=== PATIENT | female | born 1960 | race Caucasian/White ===

== ENCOUNTER → 2017-11-19 08:03 | Outpatient (CLI) | payer BC, SELFPAY ==
--- NOTE | 2017-11-19 08:30 | MM_ITS ---
MM Dig screening mamm BI w/CAD CAD Screening ORDERING PHYSICIAN : Agustin Del Castillo MD PATIENT AGE: 57 years GENDER: Female COMPARISON: Previous mammograms: January 2014, June 2012, October 2010 INDICATION: Routine screening. 57-year-old taking Premarin. No new complaints. Family history. Maternal aunt 70 and cousin 40 with breast cancer TECHNIQUE: Standard CC and MLO images were obtained. R2 CAD reviewed. FINDINGS: Dense Breast tissue again seen towards upper outer quadrant of both breasts. This decreases to mammography in this region . If any palpable areas arise ultrasound is useful compliment to mammography in breast of this increased density. Radiographically I see no discrete new findings RIGHT BREAST:. Areas of density towards upper-outer quadrant appears similar and stable on the MLO view. Scattered benign calcifications. LEFT BREAST:The dense fibroglandular elements towards upper-outer quadrant again noted and appears stable particularly on MLO view., And axillary cc view. No discrete new areas of concern radiographically. Self breast examination be encouraged and emphasized in this patient as well.. & If any persistent palpable area does arise ultrasound would be useful compliment to mammography in breast of this increased density IMPRESSION: Dense breast tissue towards upper-outer quadrant of both breasts does, decreased sensitivity mammography. However We see no significant new findings on today's study when compared to multiple prior studies. . Bilateral follow-up in one year recommended BI-RADS Category: 2 Benign Finding(s) RECOMMENDED FOLLOW-UP: 1YR - 1 YEAR FOLLOW-UP (A letter has been sent to the patient regarding results of the study.) In
== END ==
PROVIDERS: Family Provider Family Medicine; PCP Family Medicine; Visit Provider Family Medicine
DX: Z12.31 Encounter for screening mammogram for malignant neoplasm of breast (principal)
CPT/HCPCS: 77067

== ENCOUNTER → 2018-11-26 08:16 | Outpatient (CLI) | payer BC, SELFPAY ==
--- NOTE | 2018-11-26 08:18 | MM_ITS ---
MM Dig screening mamm BI w/CAD ORDERING PHYSICIAN : Agustin Del Castillo MD PATIENT AGE: 58 years GENDER: Female COMPARISON: November INDICATION: ITS.REASON: SCREENING takes Premarin. No new complaints Family history. Maternal aunt breast cancer age 70 and maternal cousin age 40 TECHNIQUE: Standard CC and MLO images were obtained. R2 CAD reviewed. Additional axillary cc view both breast FINDINGS: Very dense breast pattern is seen in this patient which significantly decreases sensitivity of mammography . If any palpable areas arise ultrasound is a useful compliment to mammography in breast of this dense character. Dense somewhat heterogeneous slight asymmetric pattern again observed RIGHT BREAST:No new findings of significant concern follow-up in one year recommended. . There are some scattered small calcifications at the central breast which appears stable. Other areas of subtle calcification at the lateral retroareolar region I believe similar to previous study. No new suspicious calcifications. Follow-up in one year adequate... Heterogeneous breast pattern and scattered areas of nodularity similar to previous study. LEFT BREAST: No new areas of significant concern. Dense breast pattern similar to previous studies Follow-up in one year recommended IMPRESSION: Dense breast bilaterally decreased sensitivity mammography No significant new areas of concern Bilateral follow-up in one year recommended BI-RADS Category: 2 Benign Finding(s) RECOMMENDED FOLLOW-UP: 1YR 1 YEAR FOLLOW-UP (A letter has been sent to the patient regarding results of the study.)
== END ==
PROVIDERS: PCP Family Medicine; Visit Provider Family Medicine
DX: Z12.31 Encounter for screening mammogram for malignant neoplasm of breast (principal)
CPT/HCPCS: 77067

== ENCOUNTER → 2020-12-28 08:49 | Outpatient (CLI) | payer BC, SELFPAY ==
--- NOTE | 2020-12-28 08:51 | XR_ITS ---
PROCEDURE: XR DEXA AXIAL SKELETON CLINICAL HISTORY: OSTEOPOROSIS COMPARISON: CR BONE3 BONE DENSITOMETRY(HIP:LT SPINE from 10/15/2014 FINDINGS: The right hip BMD is 0.585 with a T-score of -2.4. The left hip BMD is 0.724 with a T-score of -1.8. The lumbar spine BMD is 0.862 with a T-score of -1.7. Previously the lowest density was in the right femoral neck with a T-score -2.3. IMPRESSION: This patient is considered osteopenic according to the World Health Organization criteria. Bone density is between 10 and 25 percent below young normal. Fracture risk is moderate. Treatment is advised. Based on these results a follow-up exam is recommended in 2 year. Dictated by: Austin Bone MD 12/29/2020 05:55 Austin Bone MD in [place] 12/29/2020 05:55
--- NOTE | 2020-12-28 08:51 | MM_ITS ---
PROCEDURE INFORMATION: Exam: MG Screening 3D Mammography Exam date and time: 12/28/2020 8:51 AM Age: 60 years old Clinical indication: Encounter for screening mammogram for malignant neoplasm of breast . Family history of premenopausal and postmenopausal breast carcinoma TECHNIQUE: Imaging protocol: Screening tomosynthesis and 2D mammography including computer-aided detection (CAD) when performed. COMPARISON: 1. MG [facility]BI MM Dig screening mamm BI w/CAD 11/26/2018 8:32 AM 2. MG [facility] MM Dig screening mamm BI w/CAD 11/19/2017 8:39 AM 3. MG DMSB DIG MAMM-SCREEN LEVI 01/19/2014 8:54 AM FINDINGS: MAMMOGRAPHY: Breast composition: The breasts are extremely dense, which lowers the sensitivity of mammography. Mass: No new suspicious masses. Architectural distortion: No suspicious distortion. Calcifications: No suspicious calcifications. Asymmetric density: None. Skin thickening: None. Axillary adenopathy: None. IMPRESSION: No mammographic evidence of malignancy. Annual screening is recommended unless otherwise clinically indicated. ASSESSMENT: BI-RADS Category 1: Negative
== END ==
PROVIDERS: PCP Family Medicine; Visit Provider Nurse Practitioner Family
DX: Z12.31 Encounter for screening mammogram for malignant neoplasm of breast (principal); M81.0 Age-related osteoporosis without current pathological fracture
CPT/HCPCS: 77063; 77067; 77080

== ENCOUNTER → 2021-11-18 12:50 | Outpatient (CLI) | payer BC, SELFPAY ==
[2021-11-18 15:22] LABS: Blood Urea Nitrogen 13 mg/dl (7-17); Estimated Glomerular Filt Rate 101 ml/min (>60); GFR (African American) 122 ML/MIN (>60)
== END ==
PROVIDERS: Visit Provider Family Medicine
DX: H93.19 Tinnitus, unspecified ear (principal)
CPT/HCPCS: 36415; 82565; 84520

== ENCOUNTER → 2021-11-21 12:59 | Outpatient (CLI) | payer BC, SELFPAY ==
--- NOTE | 2021-11-21 13:40 | MR_ITS ---
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 TINNITUS [id number]. FINDINGS: Multi planar MR imaging was obtained through the brain without contrast. The midline structures appear intact. There is no evidence of Chiari malformation. On T2 and flair axial images the brain parenchyma is homogeneous. On diffusion-weighted images there is no evidence of restricted diffusion. The visualized paranasal sinuses demonstrate normal signal voids. The seventh and eighth nerve root complexes are intact. IMPRESSION: Essentially unremarkable nonenhanced brain MRI. Reviewed, Interpreted and Dictated by Tuan Canales MD Transcribed by Syl Pike Authenticated by Tuan Canales MD on 11/21/2021 03:02:16 PM [facility]
== END ==
PROVIDERS: PCP Family Medicine; Visit Provider Family Medicine
DX: H93.13 Tinnitus, bilateral (principal)
CPT/HCPCS: 70551

== ENCOUNTER → 2023-03-07 09:02 | Outpatient (CLI) | payer BC, SELFPAY ==
--- NOTE | 2023-03-07 09:07 | MM_ITS ---
PROCEDURE INFORMATION: Exam: MG Bilateral Screening 3D Mammography Exam date and time: 03/07/2023 9:03 AM Age: 62 years old Clinical indication: Screening mammogram TECHNIQUE: Imaging protocol: Bilateral Screening tomosynthesis and 2D mammography including computer-aided detection (CAD) when performed. COMPARISON: 1. MG MM DIG SCREENING MAMM BI W/CAD 12/28/2020 8:51 AM 2. MG SCBI MM Dig screening mamm BI w/CAD 11/26/2018 8:32 AM 3. MG SCBI MM Dig screening mamm BI w/CAD 11/19/2017 8:39 AM 4. MG DMSB DIG MAMM-SCREEN LEVI 01/19/2014 8:54 AM FINDINGS: MAMMOGRAPHY: Breast composition: The breast is heterogeneously dense, which may obscure small masses. Mass: None. Architectural distortion: No new or suspicious architectural distortion. Calcifications: No new or suspicious calcifications are present Asymmetric density: No new or suspicious asymmetric density is present Skin thickening: None. Axillary adenopathy: None. IMPRESSION: No mammographic evidence of malignancy. Recommend annual screening mammography unless otherwise clinically indicated. ASSESSMENT: BI-RADS category 1: Negative
--- NOTE | 2023-03-07 09:08 | XR_ITS ---
FINAL REPORT CLINICAL HISTORY: .post menopausal COMPARISON: None FINDINGS: Using L1-4, the bone mineral density of the spine is 0.893 g/cm2, corresponding to T-score of -1.4, which is in the low bone density range. Using the left hip, the bone mineral density of the femoral neck is 0.637 g/cm2, corresponding to a T-score of -1.9, which is in the low bone density range. Using the right hip, the bone mineral density of the femoral neck is 0.594 g/cm2, corresponding to a T-score of -2.3, which is in the low bone density range. FRAX was not reported because patient is being treated for osteoporosis. NOTE: T-score: Standard deviation compared with peak bone mass of young adult mean. *Following the recommendations of the International Society of Bone densitometry, classification of hip BMD is based on the lower of two T-scores; total hip or femoral neck. IMPRESSION: Diminished bone mineral density consistent with low bone density. Reviewed, Interpreted and Dictated by Dmitry Staley III, MD Transcribed by Payton De La Cruz Authenticated and [facility]
== END ==
PROVIDERS: PCP Physician Assistant; Visit Provider Physician Assistant
DX: Z12.31 Encounter for screening mammogram for malignant neoplasm of breast (principal); Z78.0 Asymptomatic menopausal state
CPT/HCPCS: 77063; 77067; 77080

== ENCOUNTER 2025-04-14 07:41 | Outpatient (CLI) | payer MEDICARE, SELFPAY ==
--- OUTSIDE RECORDS SUMMARY | 2024-12-22 07:15 | XMS_ITS ---
Author Organization [facility] Address [address] [facility] [address] [place] [id number] Care Team Providers Care Telecom Analyst Name Role Phone Byron Del Castillo Primary Care Provider Allergies Allergen (clinical drug ingredient) Drug/Non Drug Allergy documented on EMR Reaction Allergy Type Onset Date Status Latex Latex Unknown Allergy Active Results Component Value Reference Range Notes P-Comprehensive Metabolic Pa elizabeth (CMP) Reviewed date:01/05/2025 10:01:52 AM Interpretation:Normal Performing Lab: Notes/Report: Test performed by [facility], [facility] [address] [place] [address] , [address], [place] [address] Reggie Simon MD, Business Performance Analyst CLIA: [id number] Sodium 141 135-145 mmol/L Potassium 4.0 3.5-5.3 mmol/L Chloride 106 97-108 mmol/L CO2 27 22-32 mmol/L Glucose 85 65-99 mg/dL BUN 11 8-23 mg/dL Creatinine 0.58 0.50-1.00 mg/dL Calcium 9.6 8.6-10.4 mg/dL eGFR by Creatinine 100 >59 mL/min/1.73m2 Protein 6.6 6.0-8.3 g/dL Albumin 4.3 3.5-5.3 g/dL Alkaline Phosphatase 84 35-121 IU/L ALT (SGPT) 15 <5-47 IU/L AST (SGOT) 23 <5-40 IU/L Bilirubin, Total 0.6 <0.2-1.2 mg/dL A/G Ratio 1.9 1.1-2.5 P-Lipid Panel Reviewed date:01/05/2025 10:01:52 AM Interpretation:chol 220, non-hdl 130 Performing Lab: Notes/Report: Test performed by [facility], [address] , [address], [place] [address] Reggie Simon MD, Business Performance Analyst CLIA: [id number] Cholesterol 220 <200 mg/dL Triglycerides 65 <150 mg/dL HDL Cholesterol 90 >39 mg/dL Cholesterol / HDL Ratio 2.44 0.00-4.44 Ratio Non-HDL Cholesterol 130 <130 mg/dL LDL Cholesterol (Calculation) 117 <130 mg/dL LDL Cholesterol Levels* Less than 100 mg/dL Optimal 100 to 129 mg/dL Near Optimal/ Above Optimal 130 to 159 mg/dL Borderline High 160 to 189 mg/dL High 190 mg/dL and above Very High * Categories as recommended by the 2004 ATPIII guidelines LDL/HDL Ratio 1.3 <3.3 Ratio LDL Cholesterol Patient History Test Date: 02/22/2023 LDL Results: 132 Units: mg/dL % Change: - Test Date: 01/04/2024 LDL Results: 116 Units: mg/dL % Change: -12% Test Date: 12/22/2024 LDL Results: 117 Units: mg/dL % Change: +0% REASON FOR VISIT 6 months, Needs labs, mammogram, & Prevnar vaccine Medications Medication SIG (Take, Route, Fr equency, Duration) Notes Start Date End Date Status Premarin 0.3 MG take 1 tablet by juan daniel th every day Orally Once a day; Duration: 90 days Active Sertraline HCl 50 MG 1 tablet orally onc e a day; Duration: 90 days Active Lisinopril 5 MG 1 tablet Orally Once a day; Duration: 30 days 12/22/2024 Active Oxazepam 10 MG 1 cap(s) orally 3 ti mes a day as needed; Duration: 30 day(s) 06/30/2024 A ctive Problems Problem Type SNOMED Code ICD Code Onset Dates Problem Status W/U Status Risk Notes Problem Essential hypertension (I10) Active confirmed Vital Signs Blood pressure systolic 150 mm Hg 12/23/19 25 Blood pressure diastolic 90 mm Hg 025 Heart Rate 56 /min 12/22/2024 Height 64.75 in 12/22/2024 Weight 119.0 lbs 12/22/2024 BMI 19.95 kg/m2 12/22/2024 Encounters Encounter Location Date Provider Diagnosis [facility] [address] [facility] [address] [place] [id number] 12/22/2024 Byron Del Castillo Essential hypertensi on I10 ; Anxiety and depression F41.9 ; Hormone replacement therapy Z79.890 ; Pure hypercholesterolemia, unspecified E78.00 ; Hyperlipidemia, unspecified hyperlipidemia type E78.5 and Body mass index (BMI) of 19.0 to 19.9 in adult Z68.1 Assessments Encounter Date Diagnosis (ICD Code) Assessment Notes Treatment Notes Treatment Clinical Notes Section Notes 12/22/2024 Essential hypertension (ICD-10 - I10) 12/22/2024 Anxiety and depression (ICD-10 - F41.9) 12/22/2024 Hormone replacement therapy (ICD-10 - Z79.890) 12/22/2024 Pure hypercholesterolemi a, unspecified (ICD-10 - E78.00) 12/22/2024 Hyperlipidemia, unspecified hyperlipidemia type (ICD-10 - E78.5) 12/22/2024 Body mass index (BMI) of 19.0 to 19.9 in adult (ICD-10 - Z68.1) Plan Of Treatment Medication Medication Name Sig Start Date Stop Date Notes Lisinopril 5 MG 1 tablet Orally Once a day; Duration: 30 days 12/22/2024 Next Appt Details Follow Up: 4 Weeks, Reason: Provider Name:Rodolfo Schumacher ry, 07/17/2025 09:45:00 AM, [address] [facility] [address] [facility], [address] [place] [address], [id number], Progress Notes * Teresa HOUSEDOB: [birth year] (64 yo F)Acc No.[id number]:12/22/2024 Progress Notes Patient: Teresa GROVER Provider: Byron Del Castillo M.D. :1960 A ge:64 Y S ex:Female Date:12/22/2024 Address:[address] [place] [address] , [place], [id number] Subjective: * Chief Complaints: * 1 . 6 months. 2. Needs labs, mammogram, & Prevnar vaccine. * HPI: C ardiology: The pt is here for a check up on Hyperlipidemia. Pt states she is doing good and denies any new concerns today. Pt states she is fasting. Denies : Chest Pain. D enies : Short of Breath. D enies : Dizziness. D enies : Palpitations. P sychology: The pt is here for a check up on anxiety. Pt states she is needing refills sent to [facility] in [facility]. E NT/respiratory: Currently refusing Prevnar. We discussed. * ROS: D ERMATOLOGY: no R cyndee. n o H martha. G ASTROENTEROLOGY: no N ausea. n o V omiting. n o D iarrhea.? U ROLOGY: no D ifficulty urinating. n o B lood in urine. * Medical History: T Dap 2017, Negative Cologuard 12/2020. * Surgical History: H ysterectomy 1985, Tonsillectomy , Root Canal 01/2013, Dental 03/2013, Cosmetic 07/2014. * Hospitalization/Major Diagno stic Procedure: S ee Above . * Family History: F ather: 85 yrs, skin cancers of face, diagnosed with Heart Disease. M other: alive 75 yrs. 1 brother(s) . . * Social History: C URRENT TOBACCO USE S moking Status: Patient does NOT smoke. C affeine: yes, frequency:coffee and diet pepsi. Home smoke detector use: yes. Marital Status: . Past smoking status: no. Alcohol: Yes, Type: , Frequency: ,Years: , Determination:occasionally. Sexually active: yes. * Medications: T aking Oxazepam 10 MG Capsule 1 cap(s) orally 3 times a day as needed , Taking Sertraline HCl 50 MG Tablet 1 tablet orally once a day , Taking Premarin 0.3 MG Tablet take 1 tablet by mouth every day Orally Once a day , Medication List reviewed and reconciled with the patient * Allergies: L atex. Objective: * Vitals: W t:119.0, Temp:97.6, BP:150/90, HR:56, Nurse:IMAN, Ht: 64.75, BMI:19.95. * Examination: G eneral Examination: General Appearance: N AD. H EENT: u nremarkable.?Oral cavity: n o lesions, mucosa moist and WNL, no erythema. N kathy: s upple, no lymphadenopathy. C hest: n ormal shape and expansion. H eart: R SR, REPEAT SI=276/80. Lungs: c lear to auscultation. A bdomen: bowel sounds present, soft and nontender.?Neurologic Exam: I ntact, gait normal. S kin: n ormal, no rash. P eripheral pulses: n ormal . E xtremities: n o leg edema. Assessment: * Assessment: 1. E ssential hypertension - I10 (Primary) 2 . A nxiety and depression - F41.9 3 . H ormone replacement therapy - Z79.890 4 . P ure hypercholesterolemia, unspecified - E78.00 5 . H yperlipidemia, unspecified hyperlipidemia type - E78.5 6 . B rozina mass index (BMI) of 19.0 to 19.9 in adult - Z68.1? Plan: * Treatment: Value Reference Range A /G Ratio 1.9 1.1-2.5 - * A lbumin 4.3 3.5-5.3 - g/dL * A lkaline Phosphatase 84 35-121 - IU/L * A LT (SGPT) 15 <5-47 - IU/L * A ST (SGOT) 23 <5-40 - IU/L * B ilirubin, Total 0.6 <0.2-1.2 - mg/dL * B UN 11 8-23 - mg/dL * C alcium 9.6 8.6-10.4 - mg/dL * C hloride 106 97-108 - mmol/L * C O2 27 22-32 - mmol/L * C reatinine 0.58 0.50-1.00 - mg/dL * G lucose 85 65-99 - mg/dL * P otassium 4.0 3.5-5.3 - mmol/L * S odium 141 135-145 - mmol/L * P rotein 6.6 6.0-8.3 - g/dL * e GFR by Creatinine 100 >59 - mL/min/1.73m2 * Denisa Glez 01/05/2025 10:0 1:33 AM > see phone encounter 2.?Pure hypercholesterolemia, unspecified?LAB: P-Lipid Panel (Collection Date & Time - 12/22/2024 11:17 AM)?chol 220, non-hdl 130* Value Reference Range C holesterol / HDL Ratio 2.44 0.00-4.44 - Ratio * C holesterol 220 H <200 - mg/dL * H DL Cholesterol 90 >39 - mg/dL * L DL Cholesterol (Calculation) 117 <130 - mg/d L * L DL/HDL Ratio 1.3 <3.3 - Ratio * N on-HDL Cholesterol 130 H <130 - mg/dL * T riglycerides 65 <150 - mg/dL * Denisa Glez 01/05/2025 10:0 1:33 AM > see phone encounter * Procedure Codes: G 2211 Complex e/m visit add on, 3077F SYST BP = 140 MM HG6 IT, 3079F DIAST BP 80- 89 MM HG * Follow Up: 4 Weeks * Images: Billing Information: * Visit Code: 88478 Office Visit, Est Pt., Level 4. * Procedure Codes: G2211 Complex e/m visit add on. 3077F SYST BP = 140 MM HG6 IT. 3079F DIAST BP 80-89 MM HG. * Electronic signature of Byron Del Castillo MD on 04/14/2025 at 07:45 AM EDT Sign off status: Pending * Provider: Byron Del Castillo M.D. Date: 0 12/22/2024 Generated for Printi ng/Faxing/eTransmitting on: 0 04/14/2025 07:45 AM EDT History and Physical Notes * HPI (History of Present Illness) Category Sub-Category Detail Notes Category Not es ENT/respiratory Currently re fusing Prevnar. We discussed. Cardiology Short of Breath Chest Pain Palpitations Dizziness Examination Category Sub-Category Detail Notes Category Not es General Examination HEENT: unremarkable Heart: RSR, REPEAT ZS=470/8 0 Lungs: clear to auscultatio n Abdomen: bowel sounds present , soft and nontender Extremities: no leg edema General Appearance: NAD Skin: normal, no rash Neurologic Exam: Intact, gait normal Neck: supple, no lymphaden opathy Oral cavity: no lesions, mucosa m oist and WNL, no erythema Peripheral pulses: normal Chest: normal shape and exp ansion
--- OUTSIDE RECORDS SUMMARY | 2025-01-14 11:00 | XMS_ITS ---
Author [facility] Address [address] [facility] [address] [place] [id number] Care Team Providers Care Boilers And Pressure Vessels Inspector Name Role Phone Byron Del Castillo Primary Care Provider [phone] Rodolfo Stanley Unavailable [phone] Allergies Allergen (clinical drug ingredient) Drug/Non Drug Allergy documented on EMR Reaction Allergy Type Onset Date Status Latex Latex Unknown Allergy Active REASON FOR VISIT Bp elevated, unable to take lisinopril, chol elevated Medications Medication SIG (Take, Route, Frequency, Duration) Notes Start Date End Date Status Premarin 0.3 MG take 1 tablet by juan daniel th every day Orally Once a day; Duration: 90 days Active Lisinopril 5 MG 1 tablet Orally Once a day; Duration: 30 days 12/22/2024 Not-Takin g Sertraline HCl 50 MG 1 tablet orally onc e a day; Duration: 90 days Active Oxazepam 10 MG 1 cap(s) orally once a day as needed 06/30/2024 Active hydrOXYzine HCl 25 MG 1 or 2 tablets as needed Orally Once a day at bedtime 01/14/2025 Active Problems Problem Type SNOMED Code ICD Code Onset Dates Problem Status W/U Status Risk Notes Problem High density lipoprotein above reference range (finding) (574587653) Elevated HDL (E78.89) Active confirmed Problem Primary insomnia (9237489) Primary insomnia (F51.01) Active confirmed Vital Signs Blood pressure systolic 122 mm Hg 01/15/20 25 Blood pressure diastolic 80 mm Hg 05/14/2 025 Heart Rate 66 /min 01/14/2025 Height 64.75 in 01/14/2025 Weight 117.8 lbs 01/14/2025 BMI 19.75 kg/m2 01/14/2025 Encounters Encounter Location Date Provider Diagnosis [facility] [address] [place] [address] [address] [place], [place] [id number] 01/14/2025 Rodolfo Lizeth Elevated HDL E78.89 ; Primary insomnia F51.01 and Body mass index (BMI) of 19.0 to 19.9 in adult Z68.1 Assessments Encounter Date Diagnosis (ICD Code) Assessment Notes Treatment Notes Treatment Clinical Notes Section Notes 01/14/2025 Elevated HDL (ICD-10 - E78.89) No change in treatment 01/14/2025 Primary insomnia (ICD-10 - F51.01) 01/14/2025 Body mass index (BMI) of 19.0 to 19.9 in adult (ICD-10 - Z68.1) Plan Of Treatment Medication Medication Name Sig Start Date Stop Date Notes Oxazepam 10 MG 1 cap(s) orally once a day as needed 2023 hydrOXYzine HCl 25 MG 1 or 2 tablets as needed Orally Once a day at bedtime 01/14/2025 Treatment Notes Assessment Notes Elevated HDL No change in treatme nt Next Appt Details Follow Up: 6 Months, Reason: Provider Name:Rodolfo Schumacher ry, 07/17/2025 09:45:00 AM, [address] [facility] [address] [facility], [address], [place], [place], [id number], Progress Notes * Herlinda ESPINOZAilianaDOB: [birth year] (64 yo F)Acc No.[id number]:01/14/2025 Progress Notes Patient: Teresa GROVER Provider: Sofi Stanley M.D. :1960 A ge:64 Y S ex:Female Date:01/14/2025 Address:[address] [place] [address] [place], [id number] Pcp:Byron Del Castillo Subjective: * Chief Complaints: * 1 . Bp elevated, unable to take lisinopril, chol elevated. * HPI: C ardiology: 64 year old female presents with c/o BloodPressure at Home T he patient is here today for a follow up on Hypertension. Pt states she had blurred vision with the Lisinopril so she stopped it. Pt states she does not check her BP at home. Denies : Chest Pain. D enies : Short of Breath. D enies : Dizziness. D enies : Palpitations. * ROS: D ERMATOLOGY: no R cyndee. n o H martha. G ASTROENTEROLOGY: no N ausea. n o V omiting. n o D iarrhea.? U ROLOGY: no D ifficulty urinating. n o B lood in urine. * Medical History: T Dap 2017, Negative Cologuard 12/2020, hyperlipidemia, elevated HDL, Insomnia. * Surgical History: H ysterectomy 1985, Tonsillectomy [...] every day Orally Once a day , Not-Taking Lisinopril 5 MG Tablet 1 tablet Orally Once a day , Medication List reviewed and reconciled with the patient * Allergies: L atex. Objective: * Vitals: W t: 117.8, Temp: 97.7, BP: 122/80, HR: 66, Nurse: IMAN, Ht: 64.75, BMI:19.75. * Examination: P sychology: General Appearance: N AD. G rooming : a dequate.?Eye contact : n ormal. M ood : p leasant. H eart: R SR. L ungs: c lear to auscultation. Assessment: * Assessment: 1. E levated HDL - E78.89 (Primary) 2 . P rimary insomnia - F51.01 ? 3 . B rozina mass index (BMI) of 19.0 to 19.9 in adult - Z68.1 Plan: * Treatment: 2. P rimary insomnia Start hydrOXYzine HCl Tablet, 25 MG, 1 or 2 tablets as needed, Orally, Once a day at bedtime, 45, Refills 1; D ecrease Oxazepam Capsule, 10 MG, 1 cap(s), orally, once a day as needed. * Procedure Codes: G 2211 Complex e/m visit add on, 3074F SYST BP LT 130 MM HG, 3079F DIAST BP 80-89 MM HG * Follow Up: 6 Months * Images: Billing Information: * Visit Code: 39433 Office Visit, Est Pt., Level 3. * Procedure Codes: G2211 Complex e/m visit add on. 3074F SYST BP LT 130 MM HG. 3079F DIAST BP 80-89 MM HG. * Electronic signature of Catherine Stanley MD on 04/14/2025 at 07:44 AM EDT Sign off status: Pending * Provider: Sofi Stanley M.D. Date: 0 01/14/2025 Generated for Javi abarca/Anaya/Kititting on: 0 04/14/2025 07:44 AM EDT History and Physical Notes * HPI (History of Present Illness) Category Sub-Category Detail Notes Category Not es Cardiology Short of Breath Chest Pain Palpitations Dizziness BloodPressure at Home The patient is her e today for a follow up on Hypertension. Pt states she had blurred vision with the Lisinopril so she stopped it. Pt states she does not check her BP at home Examination Category Sub-Category Detail Notes Category Not es Psychology Heart: RSR Lungs: clear to auscultatio n General Appearance: NAD Grooming : adequate Eye contact : normal Mood : pleasant
--- OUTSIDE RECORDS SUMMARY | 2025-02-13 05:30 | XMS_ITS ---
Author Organization [facility] Address [address] [facility] [address] [facility] [address] [place], [place] [id number] Care Team Providers Care Instrument Sterilizer Name Role Phone Byron Del Castillo Primary Care Provider [phone] REASON FOR VISIT 4 week f/u Encounters Encounter Location Date Provider Diagnosis [facility] [address] [facility] [address] [facility] [address] [place] [id number] 02/13/2025 Byron Del Castillo Plan Of Treatment Next Appt Details Provider Name:Rodolfo T Winsome ry, 07/17/2025 09:45:00 AM, [address] [facility] [address] [facility], [address], [place], [id number], Progress Notes * Teresa ESPINOZADOB: [birth year] (64 yo F)Acc No.[id number]:02/13/2025 Progress Notes Patient: Teresa GROVER Provider: Byron Del Castillo M.D. :1960 A ge:64 Y S ex:Female Date:02/13/2025 Address:[address] [place] [address] L[place]EL GATES [place] [id number] Subjective: * Chief Complaints: * 1 . 4 week f/u. * Medical History: Objective: * Vitals: Assessment: Plan: * Treatment: * Images: Billing Information: * Visit Code: * Procedure Codes: * Electronic signature of Byron Del Castillo MD on 04/14/2025 at 07:44 AM EDT Sign off status: Pending * Provider: Byron Del Castillo M.D. Date: 0 02/13/2025 Generated for Javi abarca/Anaya/Chidi on: 0 04/14/2025 07:44 AM EDT
--- OUTSIDE RECORDS SUMMARY | 2025-04-14 07:45 | XMS_ITS | Clinical Summary ---
Author Organization [employer] ([place], [place], [place]) Address [address] [place] [address] Care Team Providers Care Vamp Stitcher Name Role Phone Unavailable Primary Care Provider Unavailabl e Social History Tobacco Use Types Packs/Day Years Used Date Smoking Tobacco: Never Assessed Comments Unknown Sex and Gender Information Value Date Recorded Sex Assigned at Not on file Legal Sex Female 2:34 PM CDT Gender Identity Not on file Sexual Orientation Not on file Plan of Treatment Upcoming Encounters Date Type Department Care Team (Late st Contact Info) Description 04/17/2025 9:00 AM EDT Office Visit [facility] - [address] [place] [address] Nathanael Miller PA-C [address] [place] [address] Health Maintenance Due Date Last Done Comments CT Colonography 1960 Colonoscopy 1960 Colorectal Cancer Screening 1960 DXA SCAN 1960 FOBT/FIT 1958 Fit-DNA (Cologuard) 1960 Sigmoidoscopy 1960 Depression Screening (12+) 1970 Tobacco Cessation Counseling and Screening (12+) 1970 Hepatitis C Screening 1976 DTAP/TDAP/TD VACCINES (1 - Tdap) 1977 Breast Cancer Screening 1998 Pneumococcal 50+ years (1 of 1 - PCV) 2008 Shingles Vaccine (Zoster) (2 of 2) 12/29/20192019 COVID-19 VACCINE ( season) 2024 06/01/2021, 11/26/2020, 10/29/2020 Falls Risk Screening 09/03/2024 Medicare Initial AWV [id number] 11/02/2024 Influenza Vaccine (#1) 2025 Respiratory Syncytial Virus (RSV) Adult or (1 - 1-dose 75+ series) 2033 Insurance MEDICARE PART A B /BLUE SHIELD
--- OUTSIDE RECORDS SUMMARY | 2025-04-14 07:45 | XMS_ITS | Clinical Summary ---
Author Organization [facility] Address [address] [place] [address] Care Team Providers Care Enrollment Specialist Name Role Phone Provider, No Known Primary Care Provider Unavail able Allergies No known active allergies Medications PREMARIN 0.3 MG tablet Take 0.3 mg by mouth Daily. 5 06/20/2019 Active oxazepam (SERAX) 10 MG capsule TAKE ONE CAPSULE BY MOUTH 3 TIMES A DAY NEEDED 1 06/04/2019 Active Immunizations Immunization Administration Dates Next Due Tdap 03/02/2017 Family History Medical History Relation Name Comments Heart disease Father Relation Name Status Comments Father Social History Tobacco Use Types Packs/Day Years Used Date Smoking Tobacco: Never Assessed Abuse Screen Answer Date Recorded Unsafe at Home or Work/School Not on file Feels Threatened by Someone? Not on file 07/2023 Does Anyone Keep You from Co ntacting Others or Doint Things Outside the Home? Not on file 06/13/2023 Physical Sign of Abuse Present Not on file 1 Housing Stability Answer Date Recorded Current Living Arrangements Not on file 06/03 Potentially Unsafe Housing Conditions Not on louie e 06/13/2023 Family and Community Support Answer Flavio e Recorded Help with Day-to-Day Activities Not on file 06/13/2023 Lonely or Isolated Not on file 06/13/2023 Employment Answer Date Recorded Do you want help finding or keeping work or a priscilla b? Not on file 06/13/2023 Disabilities Answer Date Recorded Concentrating, Remembering, or Making Decisions Difficulty Not on file 06/13/2023 Doing Errands Independently Difficulty Not on fi le 06/13/2023 Education Answer Date Recorded Help with school or training? Not on file Preferred Language Not on file 06/13/2023 Comments No Sex and Gender Information Value Date Recorded Sex Assigned at Not on file Legal Sex Female 11:41 AM EDT Gender Identity Not on file Sexual Orientation Not on file Last Filed Vital Signs Vital Sign Reading Time Taken Comments Blood Pressure 124/74 07/04/2019 8:27 AM EDT Pulse 85 07/04/2019 8:27 AM EDT Temperature 37.2 C (98.9 F) 07/04/2019 8:27 AM EDT Respiratory Rate 15 07/04/2019 8:27 AM EDT Oxygen Saturation 98% 07/04/2019 8:27 AM EDT Inhaled Oxygen Concentration - - Weight 52.3 kg (115 lb 3.2 oz) 07/04/2019 8:27 A M EDT Height 165.1 cm (5' 5 ) 07/04/2019 8:27 AM EDT Body Mass Index 19.17 07/04/2019 8:27 AM EDT Plan of Treatment Health Maintenance Due Date Last Done Comments DXA SCAN 1960 MAMMOGRAM 1998 COLOGUARD 11/17/2003 COLON CANCER SCREENING 5 YEAR SIGMOIDOSCOPY 11/17/2003 COLONOSCOPY 11/17/2003 COLORECTAL CANCER SCREENING 11/17/2003 CT COLONOGRAPHY 11/17/2003 FECAL OCCULT BLOOD TEST 11/17/2003 FIT Testing (1 year) 11/17/2003 Pneumococcal Vaccine 50+ (1 of 1 - PCV) 2008 ZOSTER VACCINE (1 of 2) 2008 ANNUAL PHYSICAL 03/02/2017 HEPATITIS C SCREENING 03/02/2017 COVID-19 Vaccine (1 - season) 2024 INFLUENZA VACCINE 06/03/2025 TDAP/TD VACCINES (2 - Td or Tdap) 03/02/2027 017 Insurance [facility] PPO Care Teams Enrollment Specialist Relationship Specialty Start Date End Date Provider, [place] [address] PCP - General 03/02/17
--- OUTSIDE RECORDS SUMMARY | 2025-04-14 07:45 | XMS_ITS ---
Author Organization Unknown Medications Date Medication Dosage DosageUnit StartDate StopDate StopReason Active DoseQuantity DoseUnit Dispense DispenseUnit Refills NdcCode DrugCode PharmacyId IsPrescription MappedMedication Srcstatus Custom 01/14 00:00 :00 hydrOXYzine HCl 25 MG Tablet 01/14/2025 00:00:00 1 45 1 [id number] 6 101 P Start 01/14 00:00 :00 Lisinopril 5 MG Tablet 12/22/2024 00:00:00 0 30 3 [id number] 0 601 P Not Taking 12/22 00:00 :00 Lisinopril 5 MG Tablet 12/22/2024 00:00:00 1 30 3 [id number] 0 601 P Start 03/09 00:00 :00 Oxazepam 10 MG Capsule 03/09/2025 00:00:00 1 90 0 [id number] 6 710 P Unknown Status 01/14 00:00 :00 Oxazepam 10 MG Capsule 06/30/2024 00:00:00 1 [id number] 6 710 P Decrease 01/14 00:00 :00 Oxazepam 10 MG Capsule 06/30/2024 00:00:00 1 90 2 [id number] 6 710 P Taking 12/22 00:00 :00 Oxazepam 10 MG Capsule 06/30/2024 00:00:00 1 90 2 [id number] 6 710 P Taking 06/26 00:00 :00 Oxazepam 10 MG Capsule 06/30/2024 00:00:00 1 90 2 [id number] 6 710 P Unknown Status 06/13 00:00 :00 Oxazepam 10 MG Capsule 01/04/2024 00:00:00 1 90 2 [id number] 6 710 P Taking 01/14 00:00 :00 Premarin 0.3 MG Tablet 1 90 1 [id number] 0 081 P Taking 12/22 00:00 :00 Premarin 0.3 MG Tablet 1 90 1 [id number] 0 081 P Unknown Status 12/22 00:00 :00 Premarin 0.3 MG Tablet 1 90 1 [id number] 0 081 Taking 10/01 00:00 :00 Premarin 0.3 MG Tablet 1 90 1 [id number] 0 081 Start 10/01 00:00 :00 Premarin 0.3 MG Tablet 0 90 1 [id number] 0 081 Stop 06/13 00:00 :00 Premarin 0.3 MG Tablet 1 90 1 [id number] 0 081 P Taking 03/13 00:00 :00 Sertraline HCl 50 MG Tablet 1 90 Tablet 1 690 45079 412 P Unknown Status 01/14 00:00 :00 Sertraline HCl 50 MG Tablet 1 90 Tablet 1 690 79761 412 Taking 12/22 00:00 :00 Sertraline HCl 50 MG Tablet 1 90 Tablet 1 690 76894 412 Taking 08/06 00:00 :00 Sertraline HCl 50 MG Tablet 1 90 Tablet 1 690 05626 412 Start 08/06 00:00 :00 Sertraline HCl 50 MG Tablet 0 90 Tablet 1 690 10624 412 Stop 06/13 00:00 :00 Sertraline HCl 50 MG Tablet 1 90 Tablet 1 690 73961 412 P Taking
--- OUTSIDE RECORDS SUMMARY | 2025-04-14 07:45 | XMS_ITS | Referral Summary ---
Author Organization [employer] ([facility] ([place], [place], [place], [place]) Address [address] [place] [address] Care Team Providers Care Networking Technology Instructor Name Role Phone Unavailable Primary Care Provider [...] Description 04/17/2025 9:00 AM EDT Office Visit [facility] - [address] [place] [address] Nathanael Miller PA-C [address] [place] [address] Insurance MEDICARE PART A B BLUE CROSS/BLUE SHIELD
--- OUTSIDE RECORDS SUMMARY | 2025-04-14 07:45 | XMS_ITS | Patient Health Record ---
Author Organization [facility] Address [address] [place] [id number] Care Team Providers Care Print Line Feeder Name Role Phone Byron Del Castillo Primary Care Provider Rodolfo Stanley Unavailable [phone] Allergies Allergen (clinical drug ingredient) Drug/Non Drug Allergy documented on EMR Reaction Allergy Type Onset Date Status Latex Latex Unknown Allergy Active Results Component Value Reference Range Notes P-Comprehensive Metabolic Pa elizabeth (CMP) Reviewed date:01/05/2025 10:01:52 AM Interpretation:Normal Performing Lab: Notes/Report: Test performed by [facility] [address] [place] [address] , [address], [place] [address] Reggie Simon MD, Cnc Milling Machinist CLIA: [id number] Sodium 141 135-145 mmol/L Potassium 4.0 3.5-5.3 [...] 130 Performing Lab: Notes/Report: Test performed by [facility] [address], [place] [address] Reggie Simon MD, Cnc Milling Machinist CLIA: [id number] Cholesterol 220 <200 mg/dL Triglycerides 65 <150 [...] Results: 117 Units: mg/dL % Change: +0% Cologuard Reviewed date:08/20/2024 03:38:24 PM Interpretation:Negative Performing Lab: Notes/Report: Negative Cologuard Negative P-Comprehensive Metabolic Pa elizabeth (CMP) Reviewed date:06/16/2024 11:21:49 AM Interpretation:Normal Performing Lab: Notes/Report: Test performed by [facility] [address] [place] [address] , [address], [place] [address] Reggie Simon MD, Cnc Milling Machinist CLIA: [id number] Sodium 140 135-145 mmol/L Potassium 4.3 3.5-5.3 mmol/L Chloride 100 97-108 mmol/L CO2 29 22-32 mmol/L Glucose 94 65-99 mg/dL BUN 9 8-23 mg/dL Creatinine 0.62 0.50-1.00 mg/dL Calcium 9.6 8.6-10.4 mg/dL eGFR by Creatinine 98 >59 mL/min/1.73m2 Protein 6.7 6.0-8.3 g/dL Albumin 4.3 3.5-5.3 g/dL Alkaline Phosphatase 80 35-121 IU/L ALT (SGPT) 12 <5-47 IU/L AST (SGOT) 22 <5-40 IU/L Bilirubin, Total 0.6 <0.2-1.2 mg/dL A/G Ratio 1.8 1.1-2.5 P-TSH Reviewed date:06/16/2024 11:21:49 AM Interpretation:Normal Performing Lab: Notes/Report: Test performed by [facility] [facility] , [address], [place] [address] Reggie Simon MD, Cnc Milling Machinist CLIA: [id number] TSH 1.92 0.43-5.25 mU/L Medications Medication SIG (Take, Route, Frequency, Duration) Notes Start Date End Date Status Sertraline HCl 50 MG 1 tablet Orally Onc e a day; Duration: 90 days Active Premarin 0.3 MG take 1 tablet by juan daniel every day Orally Once a day; Duration: 90 days Active Lisinopril 5 MG 1 tablet Orally Once a day; Duration: 30 days 12/22/2024 Not-Takin g Oxazepam 10 MG 1 capsule as needed Orally daily 03/09/2025 Active hydrOXYzine HCl 25 MG 1 or 2 tablets as needed Orally Once a day at bedtime 01/14/2025 Active Immunizations Vaccine Route Administration Date Status Comme nts xFluzone Intradermal (18-64yrs)-trivalent ID Intradermal 05/29/2012 Administered xFlu shot-36 months and older IM Intramuscular 05/27/2009 Administered Shingrix Unknown 05/05/2019 Administered Shingrix Unknown 11/03/2019 Administered H1N1 flu vaccine IM Intramuscular 07/27/2009 Administered Fluzone Quad (6months&older) IM Intramuscular 06/29/2015 Administered Fluzone PF Quad (6-35 months) Unknown 05/10/2019 Administered Fluzone PF Quad (6-35 months) Unknown 04/06/2020 Administered Fluzone PF Quad (6-35 months) Unknown 07/18/2021 Administered COVID 19 Pfizer Unknown 11/20/2020 Administered COVID 19 Pfizer Unknown 11/26/2020 Administered COVID 19 Pfizer Unknown 06/01/2021 Administered Problems Problem Type SNOMED Code ICD Code Onset Dates Problem Status W/U Status Risk Notes Problem Fibrocystic disease of breast (31940421) Fibrocystic disease of breast (610.1) Active confirmed Problem Essential hypertensi on (80300192) Essential hypertension (I10) Active confirmed Problem Osteopenia (152393213) Osteopeni a (M85.80) Active confirmed Problem Mixed anxiety and depressive disorder (846050457) Anxiety and depression (F41.9) Active confirmed Problem Primary insomnia (8241563) Primary insomnia (F51.01) Active confirmed Problem Age-related osteoporosis (331900754) Age-related osteoporosis without current pathological fracture (M81.0) Active confirmed Problem Hormone replacement therapy (036336644) Hormone replacement therapy (Z79.890) Active confirmed Problem Mixed anxiety and depressive disorder (701288469) Anxiety associated with depression (F41.8) Active confirmed Problem Osteoporosis (56749356) Osteoporosis (M81.0) Active confirmed Problem Hyperlipidaemia (03676485) Hyperlipidemia, unspecified hyperlipidemia type (E78.5) Active confirmed Problem Tinnitus of right ea r (6519047345960) Tinnitus of right ear (H93.11) Active confirmed Problem Pure hypercholesterolemia (498778598) Pure hypercholesterol emia, unspecified (E78.00) Active confirmed Problem Benign neoplasm of skin of lower limb (52422194) Lentiginous junctional nevus of right thigh (D22.71) Active confirmed Problem Tinnitus (59259704) Asymmetric subjective nonpulsatile tinnitus without hearing loss, otoscopic finding, neurologic deficit, or head trauma (H93.19) Active confirmed Problem High density lipoprotein above reference range (finding) (314146663) Elevated HDL (E78.89) Active confirmed Vital Signs Heart Rate 66 /min 01/14/2025 Blood pressure diastolic 80 mm Hg 01/14/2025 Height 64.75 in 01/14/2025 Blood pressure systolic 122 mm Hg 01/14/2025 Weight 117.8 lbs 01/14/2025 BMI 19.75 kg/m2 01/14/2025 Encounters Encounter Location Date Provider [facility] [address] [id number] 06/13/2024 Byron Del Castillo Anxiety and depressi on F41.9 ; Hormone replacement therapy Z79.890 ; Osteoporosis M81.0 ; Hyperlipidemia, unspecified hyperlipidemia type E78.5 and Screen for colon cancer Z12.11 [facility] [address] [id number] 12/22/2024 Byron Del Castillo Essential hypertensi on I10 ; Anxiety and depression F41.9 ; Hormone replacement therapy Z79.890 ; Pure hypercholesterolemia, unspecified E78.00 ; Hyperlipidemia, unspecified hyperlipidemia type E78.5 and Body mass index (BMI) of 19.0 to 19.9 in adult Z68.1 [facility] [address] [place], [place] [id number] 01/14/2025 Rodolfo [place] Elevated HDL E78.89 ; Primary insomnia F51.01 and Body mass index (BMI) of 19.0 to 19.9 in adult Z68.1 [facility] [address] [place], [place] [id number] 06/26/2024 Byron Del Castillo Anxiety and depressi on F41.9 [facility] [address] [place] [id number] 12/22/2024 Byron Del Castillo [facility] [address] [place], [place] [id number] 01/05/2025 Byron Del Castillo [facility] [address] [place], [place] [id number] 01/21/2025 Rodolfo [place] [facility] [address] [place], [place] [id number] 03/09/2025 Rodolfo [place] Primary insomnia F51 .01 [facility] [address] [place], [place] [id number] 03/13/2025 Byron Del Castillo Assessments Encounter Date Diagnosis (ICD Code) Assessment Notes Treatment Notes Treatment Clinical Notes Section Notes 06/26/2024 Anxiety and depression (ICD-10 - F41.9) 12/22/2024 Essential hypertension (ICD-10 - I10) 12/22/2024 Anxiety and depression (ICD-10 - F41.9) 01/14/2025 Primary insomnia (ICD-10 - F51.01) 06/13/2024 Anxiety and depression (ICD-10 - F41.9) 06/13/2024 Hormone replacement therapy (ICD-10 - Z79.890) 01/14/2025 Elevated HDL (ICD-10 - E78.89) No change in treatment 03/09/2025 Primary insomnia (ICD-10 - F51.01) 06/13/2024 Osteoporosis (ICD-10 - M81.0) 01/14/2025 Body mass index (BMI) of 19.0 to 19.9 in adult (ICD-10 - Z68.1) 12/22/2024 Hormone replacement therapy (ICD-10 - Z79.890) 12/22/2024 Pure hypercholesterolem ia, unspecified (ICD-10 - E78.00) 06/13/2024 Hyperlipidemia, unspecified hyperlipidemia type (ICD-10 - E78.5) recommended OTC Fish oil in lieu of treatment which she refuses. 06/13/2024 Screen for colon cancer (ICD-10 - Z12.11) 12/22/2024 Hyperlipidemia, unspecified hyperlipidemia type (ICD-10 - E78.5) 12/22/2024 Body mass index (BMI) of 19.0 to 19.9 in adult (ICD-10 - Z68.1) Plan Of Treatment Pending Test Test Name Order Date Mammogram 03/26/2025 Next Appt Details Provider Name:Rodolfo Schumacher ry, 07/17/2025 09:45:00 AM, [address] [facility], [address], [place], [place], [id number], Insurance Providers Payer Name Payer Address Payer Phone Subscriber Number Group Number Insured Name Patient Relationship to Insured Coverage Start Date Coverage End Date MEDICARE PART B [address] [address] Eliudrajwinderанна [place] vanessa [id number] [phone] [id number] Teresa Espinoza Self - patient is the insured [employer] [address] [place] [address] [phone] [id number] Teresa Espinoza Self - patient is the insured Medications Administered Medication Instructions Date of Administration Dosage Notes Dexamethasone 02/07/2021 1 mL Given by Adarsh Underwood Dexamethasone 02/03/2022 1 mL Medical (General) History Medical History History ICD Code TDap 2018 Negative Cologuard 12/2020 hyperlipidemia, elevated HDL insomnia Surgical History Surgery Date(Month/Year) Hysterectomy 1986 Tonsillectomy Root Canal 01/2013 Dental 03/2013 Cosmetic 07/2014 Hospitalization History Reason Date(Month/Year) See Above
--- NOTE | 2025-04-14 07:47 | MM_ITS ---
PROCEDURE INFORMATION: Exam: MG Bilateral Screening 3D Mammography Exam date and time: 04/14/2025 7:51 AM Age: 64 years old Clinical indication: Screening examination. Maternal aunt and maternal cousin had breast cancer. TECHNIQUE: Imaging protocol: Bilateral Screening tomosynthesis and 2D mammography including computer-aided detection (CAD) when performed. COMPARISON: 1. MG MM DIG SCREENING MAMM BI W/CAD 03/07/2023 9:03 AM 2. MG MM DIG SCREENING MAMM BI W/CAD 12/28/2020 8:51 AM 3. MG SCBI MM Dig screening mamm BI w/CAD 11/26/2018 8:32 AM 4. MG [facility] MM Dig screening mamm BI w/CAD 11/19/2017 8:39 AM FINDINGS: MAMMOGRAPHY: Breast composition: The breasts are heterogeneously dense, which may obscure small masses. Mass: None. Architectural distortion: None. Calcifications: No suspicious calcifications. Asymmetric density: None. Skin thickening: None. Axillary adenopathy: None. IMPRESSION: No mammographic evidence of malignancy. Annual screening is recommended unless otherwise clinically indicated. ASSESSMENT: BI-RADS Category 1: Negative.
== END 2025-04-14 23:59 | disposition home or self-care (01) ==
PROVIDERS: PCP Physician Assistant; Visit Provider Family Medicine
DX: Z12.31 Encounter for screening mammogram for malignant neoplasm of breast (principal); R92.333 Mammographic heterogeneous density, bilateral breasts; Z80.3 Family history of malignant neoplasm of breast
CPT/HCPCS: 77063; 77067

== ENCOUNTER 2025-07-21 07:12 | Outpatient (CLI) | payer SELFPAY ==
--- NOTE | 2025-07-21 07:15 | CT_ITS ---
APPROVED REPORT Sys Dir: CLINICAL INDICATION Coronary risk evaluation and stratification TECHNIQUE Image Acquisition: A 128 slice MDCT scanner (TriNovusa View) was used for data acquisition. A noncontrast coronary calcium scan was performed. A CT attenuation threshold of 130 Hounsfield units (HU) was used for the detection of calcium in contiguous voxels of 1 sq mm in area to be counted as individual lesions. A tube voltage of 120 KVp was used. The patient received no medications prior to the coronary calcium CT. Image Reconstruction Transaxial images were reconstructed at 0.67 mm slide thickness. Data was reviewed interactively on an advanced workstation capable of 2 and 3-dimensional displays in all conventional reconstruction formats, including multiplanar reformations, maximum intensity projections, curved multiplanar reformations, and volume rendered reconstructions. When applicable, selected routine images describing the relevant coronary anatomy and pathology were saved and sent to PACS. Complications None Technical Quality Overall image quality was good. Total DLP (Dose-Length Product) is 162 mGy-cm. The reported value represents the total of one or more individual components during the CT acquisition of this date and at this time, and as such, the same value may appear in more than one CT report depending on the interpreting/reporting physicians. COMPARISON None FINDINGS CT Coronary Calcium Scoring LMA (Left Main Artery) = 0 LAD (Left Anterior Descending) = 35 LCX (Left Coronary Circumflex) = 0 RCA (Right Coronary Artery) = 0 Total Calcium Score = 35 using the AJ-130 method. There is also calcification in the descending thoracic aorta. IMPRESSION -Coronary artery calcification is present. -Total Calcium Score (Agatston Score) = 35 using the AJ-130 method. -The observed calcium score of 35 is at 68th percentile for subjects of the same age, sex, and race/ethnicity. -Calcification in the descending thoracic aorta. The interpretation of the calcium heart score is based on the following continuum*: 0 = no calcified plaque detected (risk of coronary artery disease is very low ??? less than 5%) 1-10 = calcium detected in extremely minimal levels (risk of coronary diseases is still low ??? less than 10%) 11-100 = mild levels of plaque detected with certainty (mild or minimal narrowing of heart arteries is likely) 101-400 = definite,at least moderate levels of plaque detected (relatively high risk of a heart attack within 3-5 years) >401-999 = extensive levels of plaque detected (high risk of heart attack, high levels of vascular disease are present, high likelihood of at least one significant coronary narrowing) *The calcium heart score quantifies the burden of coronary calcification/plaque in the coronary arteries. The calcium heart score does not evaluate the presence or the burden of non-calcified (i.e. soft) plaque. The coronary and cardiac findings of this Coronary Calcium CT were reviewed, reported, and signed by Bertram Ledbetter MD (Polymer Materials Consultant). Conclusion Electronically signed by : Kristy Ledbetter MD 07/22/2025 12:29:40
--- OUTSIDE RECORDS SUMMARY | 2025-07-21 07:15 | XMS_ITS | Clinical Summary ---
[facility] Address [address] [place] [address] Care Team Providers Care Insurance Clerk Name Role Phone Provider, No Known Primary [...] ANNUAL PHYSICAL 03/02/2017 HEPATITIS C SCREENING 03/02/2017 INFLUENZA VACCINE 04/03/2025 COVID-19 Vaccine (1 - season) 2025 TDAP/TD VACCINES (2 - Td or Tdap) 03/02/2027 017 Insurance [facility] PPO Care Teams Insurance Clerk Relationship Specialty Start Date End Date Provider, [place] [address] PCP - General 03/02/17
== END 2025-07-21 23:59 | disposition home or self-care (01) ==
LOC: RAD 07:13
PROVIDERS: PCP Physician Assistant; Visit Provider Family Medicine
DX: I25.10 Atherosclerotic heart disease of native coronary artery without angina pectoris (principal); I70.0 Atherosclerosis of aorta; Z13.6 Encounter for screening for cardiovascular disorders
CPT/HCPCS: 75571